=== PATIENT | male | born 1945 | race Hispanic/Latino ===

== ENCOUNTER 2022-10-30 18:05 | Emergency (ER) | payer OTHER ==
[~2022-10-30] VITALS: Ht 177.8 cm; Wt 75.7 kg
[~2022-10-30 18:05] MED LIST: MULT-1258 PO; PUMP160C PO
[2022-10-30 18:13] VITALS: BP 153/69; PULSE 95; RESP 16; O2SAT 97
[2022-10-30] MEDS ORDERED: IBUPROFEN 600 MG TABLET PO ONE (20:00)
== END 2022-10-30 21:17 | disposition home or self-care (01) ==
LOC: EDH 18:05
DX: S59.201A Unspecified physeal fracture of lower end of radius, right arm, initial encounter for closed fracture (principal); F32.A Depression, unspecified; W19.XXXA Unspecified fall, initial encounter; Y93.89 Activity, other specified; Y92.89 Other specified places as the place of occurrence of the external cause; Y99.8 Other external cause status
CPT/HCPCS: 29125; 73110